=== PATIENT | male | born 2000 | race Caucasian/White ===

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

== ENCOUNTER 2018-03-09 17:16 | Inpatient (IN) ==
[2018-03-09] MEDS ORDERED: Sod Chloride 0.9% Inj 1,000 ML IV.SIG ONE (17:47)
--- NOTE | 2018-03-09 17:55 | ED ---
HPI General Chief complaint: Nausea/Vomiting/Diarrhea Stated complaint: N/V [id number] Time Seen by Provider: 03/09/18 17:43 Source: patient Mode of arrival: ambulatory Limitations: no limitations History of Present Illness HPI narrative: 17-year-old male here for evaluation of nausea, vomiting, generalized malaise. Patient reports several episodes of vomiting over the last week. Reports that he is unable to tolerate liquids or solids orally. Emesis consists of whenever he attempts to eat or drink and is sometimes bilious , nonbloody. He denies diarrhea. Last bowel movement was 2 days ago and was a very small BM. He has had subjective fevers and chills. No abdominal pain. No history of abdominal surgeries. He admits to smoking marijuana, last use was about a week ago. No other illicit drugs. States that he has been to [facility] in the last week, and they treat him in the emergency department and discharge him home. Related Data Home Medications Medication Instructions Recorded Confirmed No Known Home Medications 03/09/18 03/09/18 Allergies Allergy/AdvReac Type Severity Reaction Status Date / Time No Known Allergies Allergy Verified 03/09/18 17:22 Review of Systems ROS: all other systems reviewed are negative PMFSH Medical History Medical History Patient denies medical problems (Acute) Surgical History Surgical History No history of previous surgery (Acute) Social History Social History Substance History: Active Abuse Smoking Status: Former smoker How Often Do You Have a Drink Containing Alcohol: 2 to 4 times a month [facility] within the Last 8 Weeks: No Recent Out of Country Travel within the Last 8 Weeks: No Exam Narrative Exam Narrative: GENERAL: Well-developed, well-nourished, no apparent distress. SKIN: Focused skin assessment warm/dry. No rash. HEAD: Atraumatic. Normocephalic. EYES: Pupils equal and round. No scleral icterus. No injection or drainage. ENT: Mucous membranes pink and dry. NECK: Trachea midline. No JVD. CARDIOVASCULAR: Regular rate and rhythm. No murmur appreciated. RESPIRATORY: No accessory muscle use. Clear to auscultation. Breath sounds equal bilaterally. GASTROINTESTINAL: Abdomen soft, non-tender, nondistended. Normal bowel sounds. No hernias. MUSCULOSKELETAL: No obvious deformities. No clubbing. No cyanosis. No edema. NEUROLOGICAL: Awake and alert. No obvious cranial nerve deficits. Motor grossly within normal limits. Normal speech. PSYCHIATRIC: Appropriate mood and affect; insight and judgment normal. Course Initial Documented Vital Signs Temperature 98.9 F 03/09/18 17:22 Pulse Rate 84 03/09/18 17:22 Respiratory Rate 16 03/09/18 17:22 Blood Pressure 159/89 H 03/09/18 17:22 Pulse Oximetry 94 L 03/09/18 17:22 Last Documented Vital Signs Temperature 98.9 F 03/09/18 17:22 Pulse Rate 84 03/09/18 17:22 Respiratory Rate 16 03/09/18 17:22 Blood Pressure 159/89 H 03/09/18 17:22 Pulse Oximetry 94 L 03/09/18 17:22 Medical Decision Making MDM Narrative Medical decision making narrative: Vital signs reviewed. CBC is remarkable for WBC 17 which is likely from stress demargination from vomiting. Chemistry is remarkable for sodium 129, potassium 2.0, creatinine 1.4, bicarb 40. Abdominal x-ray flat and upright shows no acute process. No signs of obstruction. Patient was provided 2 L of normal saline IV in the emergency department and will be given parenteral and oral potassium replacement. He will be admitted for further treatment and evaluation of intractable nausea and vomiting, metabolic alkalosis, hypokalemia, hyponatremia. Case discussed with hospitalist Dr. Seo who will admit the patient to the hospitalist service. The patient was made aware of all findings and agrees to with admission. Medical Screen Exam Complete: Yes Emergency Medical Condition: Yes Differential Diagnosis Differential Diagnosis: Nausea and vomiting, dehydration, metabolic abnormality , bowel obstruction less likely Lab Data Result diagrams: 03/09/18 18:00 03/09/18 18:00 Lab Results 03/09/18 03/09/18 Range/Units 18:00 18:00 CBC w Diff Auto diff final WBC 17.8 H (4.0-11.0) th/mm3 RBC 5.63 (4.50-5.90) mil/mm3 Hgb 16.5 (13.0-17.0) gm/dL Hct 50.1 (39.0-51.0) % MCV 88.9 (80.0-100.0) fL MCH 29.2 (27.0-34.0) pg MCHC 32.9 (32.0-36.0) % RDW 12.4 (11.6-17.2) % Plt Count 376 (150-450) th/mm3 MPV 8.9 (7.0-11.0) fL Neut % (Auto) 75.6 H (16.0-70.0) % Lymph % (Auto) 13.8 (9.0-44.0) % [place] % (Auto) 9.7 H (0.0-8.0) % Eos % (Auto) 0.2 (0.0-4.0) % Baso % (Auto) 0.7 (0.0-2.0) % Neut # (Auto) 13.5 H (1.8-7.7) th/mm3 Lymph # (Auto) 2.5 (1.0-4.8) th/mm3 [place] # (Auto) 1.7 H (0.0-0.9) th/mm3 Eos # (Auto) 0.0 (0.0-0.4) th/mm3 Baso # (Auto) 0.1 (0.0-0.2) th/mm3 WBC Differential . Differential Comment . Sodium 129 L (136-145) meq/L Potassium 2.0 L* (3.5-5.1) meq/L Chloride 77 L (98-107) meq/L Carbon Dioxide 40.8 H (21.0-32.0) meq/L Anion Gap 11 (5-15) meq/L BUN 23 H (7-18) mg/dL Creatinine 1.40 H (0.60-1.30) mg/dL Estimated GFR 65 L (>89) mL/min Random Glucose 102 (74-106) mg/dL Calcium 9.7 (8.5-10.1) mg/dL Total Bilirubin 2.1 H (0.2-1.0) mg/dL AST 21 (15-39) U/L ALT 27 (9-52) U/L Alkaline Phosphatase 62 (45-117) U/L Total Protein 8.5 H (6.4-8.2) g/dL Albumin 4.8 (3.4-5.0) g/dL Lipase 101 (73-393) U/L Imaging Data Radiologist's impression: Abdomen X-Ray 03/09/18 17:47 CONCLUSION: No acute abnormality is seen. Discharge Plan Discharge Disposition Patient Disposition: 30 Still Patient Discharge Condition Condition: Stable Discharge Details Diagnosis: Persistent vomiting, Dehydration, Hypokalemia Physicians Team ED Provider: Orlando Kirkland Primary Care Provider: Primary Care Day Pruett Rxs /Orders / Referrals /Forms Prescriptions: No Action No Known Home Medications RF: 0 Status ED Status: With Doctor
[2018-03-09 18:12] LABS: Baso # (Auto) 0.1 th/mm3 (0.0-0.2); Baso % (Auto) 0.7 % (0.0-2.0); Eos % (Auto) 0.2 % (0.0-4.0); Hematocrit 50.1 % (39.0-51.0); Hemoglobin 16.5 gm/dL (13.0-17.0); Lymph # (Auto) 2.5 th/mm3 (1.0-4.8); Lymph % (Auto) 13.8 % (9.0-44.0); Mean Corpuscular HGB Conc 32.9 % (32.0-36.0); Mean Corpuscular Hemoglobin 29.2 pg (27.0-34.0); Mean Corpuscular Volume 88.9 fL (80.0-100.0); Mean Platelet Volume 8.9 fL (7.0-11.0); Mono # (Auto) 1.7 th/mm3 (0.0-0.9); Mono % (Auto) 9.7 % (0.0-8.0); Neut # (Auto) 13.5 th/mm3 (1.8-7.7); Neut % (Auto) 75.6 % (16.0-70.0); Platelet Count 376 th/mm3 (150-450); Red Blood Count 5.63 mil/mm3 (4.50-5.90); Red Cell Distribution Width 12.4 % (11.6-17.2); White Blood Count 17.8 th/mm3 (4.0-11.0)
--- NOTE | 2018-03-09 18:31 | XR ---
EXAM DATE: 03/09/2018 5:47 PM EDT AGE/SEX: 17 years / Male INDICATIONS: Nausea, vomiting, constipation for 1 week CLINICAL DATA: This is the patient's initial encounter. Patient reports that signs and symptoms have been present for 1 week and indicates a pain score of 8/10. MEDICAL/SURGICAL HISTORY: None. None. COMPARISON: No prior exams available for comparison. FINDINGS: Supine and upright views of the abdomen were performed. The abdominal bowel gas pattern is normal. No air-fluid levels are seen. No abnormal masses, calcifications, or organomegaly is seen. The visualiz ed lower lungs are clear. No evidence of free intraperitoneal gas. The osseous structures are unremar kable. CONCLUSION: No acute abnormality is seen. Electronically signed by: Brennan Rolle MD 03/09/2018 6:30 PM EDT
[2018-03-09 18:36] LABS: Alanine Aminotransferase 27 U/L (9-52); Albumin 4.8 g/dL (3.4-5.0); Alkaline Phosphatase 62 U/L (45-117); Anion Gap 11 meq/L (5-15); Aspartate Aminotransferase 21 U/L (15-39); Blood Urea Nitrogen 23 mg/dL (7-18); Calcium 9.7 mg/dL (8.5-10.1); Carbon Dioxide 40.8 meq/L (21.0-32.0); Chloride 77 meq/L (98-107); Glomerular Filtration Rate 65 mL/min (>89); Glucose,Random 102 mg/dL (74-106); Lipase 101 U/L (73-393); Sodium 129 meq/L (136-145); Total Protein 8.5 g/dL (6.4-8.2)
[2018-03-09] MEDS ORDERED: Sod Chloride 0.9% Inj 1,000 ML IV.SIG SCH (19:00)
[2018-03-09] MEDS ORDERED: Potassium Chloride Inj 40 MEQ in Sodium Chloride 0.45 % Inj 1,000 ML IV.CONT SCH (19:00)
[2018-03-09] MEDS ORDERED: Acetaminophen 325 MG Tablet PO PRN (19:20)
[2018-03-09] MEDS ORDERED: Bisacodyl 10 MG Supp RECTAL PRN (19:20)
[2018-03-09] MEDS ORDERED: Morphine Sulfate Inj 2 MG/ML Vial IV.PUSH PRN ×2 (19:21→19:49)
[2018-03-09] MEDS: Sod Chloride 0.9% Inj 1,000 ML IV.CONT SCH (19:49)
[2018-03-09] MEDS: Pantoprazole Inj 40 MG Vial IV.PUSH SCH (19:50)
[2018-03-09 20:10] LABS: Bilirubin,Urine Negative (Negative); Clarity,Urine Clear (Clear); Color,Urine Yellow (Yellw/Straw); Glucose,Urine (UA) Negative (Negative); Leukocyte Esterase,Urine Negative (Negative); Nitrite,Urine Negative (Negative); Specific Gravity,Urine 1.015 (1.002-1.035)
[2018-03-09 20:16] LABS: RBC,Urine 0-3 /hpf (0-3); Squamous Epithelial Cell,Urine 0-5 /hpf (0-5)
[2018-03-09] MEDS: Senna/Docusate Sodium 8.6/50 MG Tablet PO SCH (23:12)
[2018-03-10] MEDS: Potassium Chlor 20 mEq Premix 20 MEQ/100 ML PIGGYBACK IV.SIG SCH ×5 (01:58→23:50)
[2018-03-10] MEDS: Sod Chloride 0.9% Inj 1,000 ML IV.CONT SCH ×2 (05:52→17:21)
[2018-03-10 07:07] LABS: Baso # (Auto) 0.1 th/mm3 (0.0-0.2); Baso % (Auto) 0.8 % (0.0-2.0); Eos # (Auto) 0.1 th/mm3 (0.0-0.4); Eos % (Auto) 0.6 % (0.0-4.0); Hematocrit 45.7 % (39.0-51.0); Hemoglobin 15.5 gm/dL (13.0-17.0); Lymph # (Auto) 2.7 th/mm3 (1.0-4.8); Lymph % (Auto) 18.3 % (9.0-44.0); Mean Corpuscular HGB Conc 33.8 % (32.0-36.0); Mean Corpuscular Hemoglobin 30.1 pg (27.0-34.0); Mean Corpuscular Volume 88.8 fL (80.0-100.0); Mean Platelet Volume 9.3 fL (7.0-11.0); Mono # (Auto) 1.6 th/mm3 (0.0-0.9); Mono % (Auto) 11.1 % (0.0-8.0); Neut # (Auto) 10.3 th/mm3 (1.8-7.7); Neut % (Auto) 69.2 % (16.0-70.0); Platelet Count 338 th/mm3 (150-450); Red Blood Count 5.14 mil/mm3 (4.50-5.90); Red Cell Distribution Width 12.4 % (11.6-17.2); White Blood Count 14.8 th/mm3 (4.0-11.0)
[2018-03-10 07:36] LABS: Alanine Aminotransferase 26 U/L (9-52); Albumin 4.2 g/dL (3.4-5.0); Alkaline Phosphatase 53 U/L (45-117); Anion Gap 9 meq/L (5-15); Aspartate Aminotransferase 20 U/L (15-39); Blood Urea Nitrogen 19 mg/dL (7-18); Calcium 8.8 mg/dL (8.5-10.1); Carbon Dioxide 39.4 meq/L (21.0-32.0); Chloride 83 meq/L (98-107); Glomerular Filtration Rate 71 mL/min (>89); Glucose,Random 87 mg/dL (74-106); Sodium 131 meq/L (136-145); Total Protein 7.4 g/dL (6.4-8.2)
--- NOTE | 2018-03-10 07:45 | P.HP ---
History of Present Illness Primary Care Physician: No Primary Care Physician Chief Complaint: vomiting History of Present Illness: 17-year-old male with no chronic medical illnesses who presented the hospital for intractable nausea and vomiting. Patient states that for the last 2 weeks he has had difficulty with eating and drinking. States that he keep liquid down temporarily and then he will have emesis. Unable to really eat anything for the last 2 weeks. Patient did go to [facility] and was evaluated emergency department and discharged home. Patient persistently had nausea and vomiting so he came to [place] for evaluation. Upon evaluation patient was found to have significant electrolyte abnormalities with hyponatremia and hypokalemia. Signs of significant dehydration. Because of those reasons it was recommended by the ER physician the patient be admitted for further evaluation and management. Patient denies any significant foods that could cause any type of food poisoning. Patient denies any previous history of the nausea vomiting. Patient denies any hematemesis, abdominal pain. Patient states that he has not had a bowel movement in 4 days. Denies any melena or hematochezia. Patient states he does smoke marijuana on a daily basis. - Diagnosis (1) Intractable nausea and vomiting (2) Dehydration (3) Hypokalemia (4) Prerenal azotemia (5) Hyponatremia (6) Leukocytosis Inpatient Certification: I certify that the inpatient services were ordered in accordance with Medicare regulations governing the order. This includes certification that hospital inpatient services are reasonable and necessary and in the case of services not specified as inpatient-only under 42 CFR 419.22(n), that they are appropriately provided as inpatient services in accordance to with the 2-midnight benchmark under 43 CFR 412.3(e) Estimated Total Length of Stay (Days): 2 Plans for Post Hospital Care: Not yet determined Review of Systems All other systems reviewed negative except as stated in HPI Gastrointestinal: Reports nausea, Reports vomiting PMFSH - History History Provided By: Patient - Medical History Medical History: Medical History (Last Reviewed 03/10/18 @ 07:48 by ALTAGRACIA Mckenzie) Patient denies medical problems - Surgical History Surgical History: Surgical History (Last Reviewed 03/10/18 @ 07:48 by ALTAGRACIA Mckenzie) No history of previous surgery - Family History Family History: Family History (Last Updated 03/10/18 @ 07:52 by ALTAGRACIA Mckenzie) Mother History of lupus - Tobacco History Second Hand Smoke Exposure: Yes Smoking Status: Former smoker Tobacco Type: E-Cigarettes - Alcohol History How Often Do You Have a Drink Containing Alcohol: 2 to 4 times a month - Substance Use History Substance History: No History of Abuse - Substance Use Type Marijuana Status: Active Route Used: Inhalation Last Used: one week ago. Reason for Use: Calm Down, Increase Energy Level, Peer Pressure - Travel History Recent Travel in the [place] Within the Last 8 Weeks: No Recent Travel Out of the Country Within the Last 8 Weeks: No - Immunization History Tetanus Immunization: <5 Years Hx Influenza Vaccine This Season: No Medications and Allergies Active Medications: Active Medications Acetaminophen (Tylenol) 650 mg PO Q4H PRN PRN Reason: Temp > 100.4 Al Hydroxide/Mg Hydroxide (Milk Of Magnesia Liq) 30 ml PO Q12H PRN PRN Reason: Mild Constipation Bisacodyl (Dulcolax Supp) 10 mg RECTAL DAILY PRN PRN Reason: SEVERE CONSITIPATION Sodium Chloride (Ns Inj) 1,000 mls @ 0 mls/hr IV.SIG BOLUS ELIE Sodium Chloride (Ns Inj) 1,000 mls @ 100 mls/hr IV.CONT .Q10H [facility] Last Admin: 03/10/18 05:52 Dose: 100 mls/hr Lactulose (Lactulose Liq) 30 ml PO DAILY PRN PRN Reason: SEVERE CONSITIPATION Morphine Sulfate (Morphine Inj) 2 mg IV.PUSH Q4H PRN PRN Reason: PAIN 6-10 Ondansetron HCl (Zofran Inj) 4 mg IV.PUSH Q6H PRN PRN Reason: NAUSEA OR VOMITING Last Admin: 03/10/18 01:41 Dose: 4 mg Pantoprazole Sodium (Protonix Inj) 40 mg IV.PUSH Q12H [facility] Last Admin: 03/09/18 19:50 Dose: 40 mg Prochlorperazine Edisylate (Compazine Inj) 10 mg IV.PUSH Q6H PRN PRN Reason: NAUSEA/VOMITING Senna/Docusate Sodium (Dena-Colace) 1 tab PO BID [facility] Last Admin: 03/09/18 23:12 Dose: Not Given Sennosides (Senokot) 17.2 mg PO Q12H PRN PRN Reason: Moderate Constipation Sodium Chloride (Ns Flush) 2 ml IV.FLUSH PRN PRN PRN Reason: FLUSH AFTER USING IV ACCESS Allergies Allergy/AdvReac Type Severity Reaction Status Date / Time No Known Allergies Allergy Verified 03/09/18 17:22 Home Medications Medication Instructions Recorded Confirmed Type No Known Home Medications 03/09/18 03/09/18 History Exam Vital signs: Vital Signs 03/09/18 17:22 03/09/18 20:12 03/09/18 21:49 Temperature 98.9 F Pulse Rate 84 80 82 Respiratory Rate 16 18 18 Blood Pressure 159/89 H 144/73 H 142/70 H Pulse Oximetry 94 L 98 98 03/09/18 22:00 03/10/18 00:00 Temperature 98.8 F 99.2 F Pulse Rate 72 65 Respiratory Rate 20 20 Blood Pressure 138/79 152/67 H Pulse Oximetry 97 97 Intake & Output 03/09/18 03/10/18 03/10/18 18:59 06:59 18:59 Intake Total 2200 / 2200 Balance 2200 / 2200 Weight 111.1 kg 115.4 kg Intake: IV 2200 / 2200 NS Inj 1,000 ML @ 100 mls/hr IV 1000 / 1000 .CONT .Q10H ELIE Rx#:[id number] KCl 20 mEq Premix Inj 20 meq In 200 / 200 100 ml @ 50 mls/hr IV.SIG Q2H ELIE Rx#:[id number] NS Inj 1,000 ML @ Wide Open IV. 1000 / 1000 SIG BOLUS ONE Rx#:[id number] Oral 0 / 0 Other: # Voids 3 Weight On Admission 115.6 kg Narrative: GENERAL: Well-developed, well-nourished, in no acute distress. alert and orientated HEENT: Head is normocephalic without any lesions or masses noted. Facial features are symmetric. Eyes: Pupils equal round reactive to light. Extraocular muscles are intact. Conjunctivae were clear. Oropharyngeal: Pharynx without any erythema edema. Tongue is midline without deviation. Buccal mucosa is moist without any masses or lesions NECK: Supple without any masses. Trachea midline no deviation. No JVD, no bruits are appreciated CARDIAC: Regular rhythm, regular rate. S1/S2 are heard. No murmurs gallops or rubs. LUNGS: Clear to auscultation bilaterally. No wheeze, rhonchi or rales. No use of accessory muscles on inspiration or expiration. ABDOMEN: Soft, nontender. Nondistended. Bowel sounds heard in all 4 quadrants. No organomegaly or masses. Negative rebound, negative guarding EXTREMITIES: No edema, pulses are equal bilaterally. No cyanosis or clubbing NEUROLOGY: Mood and affect appear appropriate. Cranial nerves II through XII grossly intact. Muscle strength 5/5 in upper and lower extremities bilaterally. Deep tendon reflexes are 2+ in upper and lower extremities bilaterally. Results - Labs CBC & Chem 7: 03/10/18 06:10 03/09/18 18:00 Labs: Laboratory Results - last 24 hr 03/09/18 03/09/18 03/09/18 18:00 18:00 20:00 CBC w Diff Auto diff final WBC 17.8 H RBC 5.63 Hgb 16.5 Hct 50.1 MCV 88.9 MCH 29.2 MCHC 32.9 RDW 12.4 Plt Count 376 MPV 8.9 Neut % (Auto) 75.6 H Lymph % (Auto) 13.8 Wilcox % (Auto) 9.7 H Eos % (Auto) 0.2 Baso % (Auto) 0.7 Neut # (Auto) 13.5 H Lymph # (Auto) 2.5 Wilcox # (Auto) 1.7 H Eos # (Auto) 0.0 Baso # (Auto) 0.1 WBC Differential . Differential Comment . Sodium 129 L Potassium 2.0 L* Chloride 77 L Carbon Dioxide 40.8 H Anion Gap 11 BUN 23 H Creatinine 1.40 H Estimated GFR 65 L Random Glucose 102 Calcium 9.7 Magnesium Total Bilirubin 2.1 H AST 21 ALT 27 Alkaline Phosphatase 62 Total Protein 8.5 H Albumin 4.8 Lipase 101 Urine Color Yellow Urine Clarity Clear Urine pH 8.0 Ur Specific [place] 1.015 Urine Protein 30 H Urine Glucose (UA) Negative Urine Ketones Trace H Urine Occult Blood Trace Urine Nitrate Negative Urine Bilirubin Negative Urine Urobilinogen 2.0 H Ur Leukocyte Esterase Negative Urine RBC 0-3 Ur Squamous Epith Cells 0-5 Micro UA Comment Culture not ind Ur Microscopic Review Microscopic reviewed Urine Culture Comments Culture not ind 03/09/18 03/10/18 22:50 06:10 CBC w Diff Auto diff final WBC 14.8 H RBC 5.14 Hgb 15.5 Hct 45.7 MCV 88.8 MCH 30.1 MCHC 33.8 RDW 12.4 Plt Count 338 MPV 9.3 Neut % (Auto) 69.2 Lymph % (Auto) 18.3 Wilcox % (Auto) 11.1 H Eos % (Auto) 0.6 Baso % (Auto) 0.8 Neut # (Auto) 10.3 H Lymph # (Auto) 2.7 Wilcox # (Auto) 1.6 H Eos # (Auto) 0.1 Baso # (Auto) 0.1 WBC Differential . Differential Comment . Sodium Potassium Chloride Carbon Dioxide Anion Gap BUN Creatinine Estimated GFR Random Glucose Calcium Magnesium 2.2 Total Bilirubin AST ALT Alkaline Phosphatase Total Protein Albumin Lipase Urine Color Urine Clarity Urine pH Ur Specific [place] Urine Protein Urine Glucose (UA) Urine Ketones Urine Occult Blood Urine Nitrate Urine Bilirubin Urine Urobilinogen Ur Leukocyte Esterase Urine RBC Ur Squamous Epith Cells Micro UA Comment Ur Microscopic Review Urine Culture Comments - Imaging Impressions Abdomen X-Ray 03/09/18 17:47 CONCLUSION: No acute abnormality is seen. Caprini VTE Risk Assessment Caprini VTE Risk Assessment: No/Low Risk (score <= 1) Caprini Risk Assessment Model: Point Value = 1 Point Value = 2 Point Value = 3 Point Value = 5 Age 41-60 Minor surgery BMI > 25 kg/m2 Swollen legs Varicose veins or History of unexplained or recurrent spontaneous Oral contraceptives or hormone replacement Sepsis (< 1 month) Serious lung disease, including pneumonia (< 1 month) Abnormal pulmonary function Acute myocardial infarction Congestive heart failure (< 1 month) History of inflammatory bowel disease Medical patient at bed rest Age 61-74 Arthroscopic surgery Major open surgery (> 45 min) Laparoscopic surgery (> 45 min) Malignancy Confined to bed (> 72 hours) Immobilizing plaster cast Central venous access Age >= 75 History of VTE Family history of VTE Factor V Leiden Prothrombin [id number] Lupus anticoagulant Anticardiolipin antibodies Elevated serum homocysteine Heparin-induced thrombocytopenia Other congenital or acquired thrombophilia Stroke (< 1 month) Elective arthroplasty Hip, pelvis, or leg fracture Acute spinal cord injury (< 1 month) Prophylaxis Regimen: Total Risk Factor Score Risk Level Prophylaxis Regimen 0-1 Low Early ambulation 2 Moderate Order ONE of the following: *Sequential Compression Device (SCD) *Heparin 5000 units SQ BID 3-4 Higher Order ONE of the following medications: *Heparin 5000 units SQ TID *Enoxaparin/Lovenox 40 mg SQ daily (WT < 150 kg, CrCl > 30 mL/min) *Enoxaparin/Lovenox 30 mg SQ daily (WT < 150 kg, CrCl > 10-29 mL/min) *Enoxaparin/Lovenox 30 mg SQ BID (WT < 150 kg, CrCl > 30 mL/min) AND/OR *Sequential Compression Device (SCD) 5 or more Highest Order ONE of the following medications: *Heparin 5000 units SQ TID (Preferred with Epidurals) *Enoxaparin/Lovenox 40 mg SQ daily (WT < 150 kg, CrCl > 30 mL/min) *Enoxaparin/Lovenox 30 mg SQ daily (WT < 150 kg, CrCl > 10-29 mL/min) *Enoxaparin/Lovenox 30 mg SQ BID (WT < 150 kg, CrCl > 30 mL/min) AND *Sequential Compression Device (SCD) Assessment and Plan - Assessment (1) Intractable nausea and vomiting Code(s): R11.2 - Nausea with vomiting, unspecified Status: Acute (2) Dehydration Code(s): E86.0 - Dehydration Status: Acute (3) Hypokalemia Code(s): E87.6 - Hypokalemia Status: Acute (4) Prerenal azotemia Code(s): R79.89 - Other specified abnormal findings of blood chemistry Status : Acute (5) Hyponatremia Code(s): E87.1 - Hypo-osmolality and hyponatremia Status: Acute (6) Leukocytosis Code(s): D72.829 - Elevated white blood cell count, unspecified Status: Acute - Plan Intractable nausea vomiting -Unknown etiology at this time, possible cyclic vomiting from marijuana use -Abdominal x-ray did not indicate any acute abnormality -We will need to obtain CT of the abdomen pelvis to rule out any etiology -Continue IV fluids -Continue antiemetic, proton pump inhibitor -Advance diet as tolerated Electrolyte abnormalities with hyponatremia, hypokalemia -Continue to monitor and replete as needed Prerenal azotemia -Secondary to nausea, vomiting, dehydration -Continue IV fluids -Continue monitor renal function Leukocytosis -Likely secondary to concentration -Continue monitor CBC DVT prevention -Sequential compression devices
[2018-03-10] MEDS ORDERED: Diatrizoate Meglum/Diatrizoate Sod Liq 9 ML UDC PO SCH (08:00)
[2018-03-10 08:05] LABS: Potassium 2.6 meq/L (3.5-5.1)
[2018-03-10] MEDS: Senna/Docusate Sodium 8.6/50 MG Tablet PO SCH ×2 (08:59→20:01)
[2018-03-10] MEDS: Pantoprazole Inj 40 MG Vial IV.PUSH SCH ×2 (08:59→19:50)
--- NOTE | 2018-03-10 13:28 | CT ---
EXAM DATE: 03/10/2018 7:47 AM EDT AGE/SEX: 17 years / Male INDICATIONS: Nausea and vomiting CLINICAL DATA: This is the patient's initial encounter. Patient reports that signs and symptoms have been present for 1 week and indicates a pain score of 0/10. MEDICAL/SURGICAL HISTORY: None. None. RADIATION DOSE: 19.43 CTDI (mGy) COMPARISON: [facility], ABDOMEN 2V FLAT & UPRIGHT, 03/09/2018. . TECHNIQUE: Multiple contiguous axial images were obtained through the abdomen. Images were obtained using multiple row detector helical technique. Using automated exposure control and adjustment of the mA and/or kV according to patient size, radiation dose was kept as low as reasonably achievable to o btain optimal diagnostic quality images. DICOM format image data is available electronically for rev iew and comparison. FINDINGS: Lower Lungs: The visualized lower lungs are clear. Liver: The liver has a homogeneous density without space-occupying lesion. There is no dilation of th e biliary tree. Spleen: Homogeneous density without enlargement. Pancreas: Unremarkable without mass or calcification. Kidneys: Normal in size and shape. No evidence of mass or hydronephrosis. Adrenal Glands: Unremarkable. Aorta: The aorta and proximal iliac vessels are grossly unremarkable without aneurysmal dilation. Bowel/Mesentery: There is abnormal bowel wall thickening identified throughout the cecum and proxima l portion of the transverse colon. There is also incomplete distention of the terminal ileum with sug gested circumferential wall thickening. The remainder of the small bowel is unremarkable. Abdominal Wall: Intact. Retroperitoneum: No evidence of adenopathy in the retrocrural, para-aortic, or deep pelvic regions. Bladder: Contours are smooth. Reproductive Organs: No abnormal masses or calcifications seen. Inguinal: The inguinal region is unremarkable without evidence of adenopathy. Bony Structures: Unremarkable. CONCLUSION: 1. Colitis involving the cecum, ascending colon and proximal transverse colon. The wall thickening i dentified within the terminal ileum may be artifactual secondary to incomplete distention, however, f indings can also represent inflammation secondary to Crohn's disease. Electronically signed by: Lucinda Maurer MD 03/10/2018 1:26 PM EDT
[2018-03-11] MEDS: Potassium Chlor 20 mEq Premix 20 MEQ/100 ML PIGGYBACK IV.SIG SCH ×3 (02:23→07:10)
[2018-03-11 06:20] LABS: Baso # (Auto) 0.1 th/mm3 (0.0-0.2); Baso % (Auto) 0.4 % (0.0-2.0); Eos # (Auto) 0.2 th/mm3 (0.0-0.4); Eos % (Auto) 1.5 % (0.0-4.0); Hematocrit 42.5 % (39.0-51.0); Hemoglobin 14.4 gm/dL (13.0-17.0); Lymph % (Auto) 19.8 % (9.0-44.0); Mean Corpuscular HGB Conc 33.9 % (32.0-36.0); Mean Corpuscular Hemoglobin 30.1 pg (27.0-34.0); Mean Platelet Volume 9.1 fL (7.0-11.0); Mono # (Auto) 1.3 th/mm3 (0.0-0.9); Mono % (Auto) 8.7 % (0.0-8.0); Neut # (Auto) 10.4 th/mm3 (1.8-7.7); Neut % (Auto) 69.6 % (16.0-70.0); Platelet Count 300 th/mm3 (150-450); Red Blood Count 4.77 mil/mm3 (4.50-5.90); Red Cell Distribution Width 12.1 % (11.6-17.2)
[2018-03-11 06:29] LABS: Alanine Aminotransferase 28 U/L (9-52); Albumin 3.9 g/dL (3.4-5.0); Alkaline Phosphatase 49 U/L (45-117); Anion Gap 8 meq/L (5-15); Aspartate Aminotransferase 19 U/L (15-39); Blood Urea Nitrogen 17 mg/dL (7-18); Calcium 8.5 mg/dL (8.5-10.1); Carbon Dioxide 31.9 meq/L (21.0-32.0); Chloride 92 meq/L (98-107); Glomerular Filtration Rate 86 mL/min (>89); Glucose,Random 88 mg/dL (74-106); Sodium 132 meq/L (136-145); Total Protein 6.8 g/dL (6.4-8.2)
[2018-03-11 06:35] LABS: Potassium 2.9 meq/L (3.5-5.1)
--- NOTE | 2018-03-11 07:24 | P.PN ---
Subjective Interval history: 17-year-old male who is seen and examined today for follow-up on intractable nausea and vomiting, hypokalemia. Patient states that he still is vomiting a little. Nursing staff indicates patient was vomiting all night. Patient still with significant hypokalemia. Patient denies any abdominal pain, diarrhea. Vital signs show mildly elevated blood pressure which could be reactive. Patient remains afebrile. Physical Exam Vital signs: Vital Signs 03/10/18 08:00 03/10/18 12:00 03/10/18 16:00 Temperature 98.0 F 98.2 F 98.0 F Pulse Rate 64 63 57 L Respiratory Rate 18 15 14 Blood Pressure 144/92 H 143/83 H 150/86 H Pulse Oximetry 100 100 97 03/10/18 20:00 03/11/18 00:00 Temperature 98.6 F 99.1 F Pulse Rate 62 55 L Respiratory Rate 20 20 Blood Pressure 152/80 H 140/72 Pulse Oximetry 97 95 Intake & Output 03/10/18 03/11/18 03/11/18 18:59 06:59 18:59 Intake Total 1100 / 1100 1560 / 1560 100 / 100 Balance 1100 / 1100 1560 / 1560 100 / 100 Weight 115.2 kg Intake: IV 1100 / 1100 1320 / 1320 100 / 100 NS Inj 1,000 ML @ 100 mls/hr IV 1000 / 1000 .CONT .Q10H ELIE Rx#:[id number] KCl 20 mEq Premix Inj 20 meq In 100 / 100 300 / 300 100 / 100 100 ml @ 50 mls/hr IV.SIG Q2H ELIE Rx#:[id number] Oral 240 / 240 Other: # Voids 2 # Emeses 2 Narrative: GENERAL: Well-developed, well-nourished, in no acute distress. alert and orientated HEENT: Head is normocephalic without any lesions or masses noted. Facial features are symmetric. Eyes: Extraocular muscles are intact. Conjunctivae were clear. NECK: Supple without any masses. Trachea midline no deviation. No JVD, CARDIAC: Regular rhythm, regular rate. S1/S2 are heard. No murmurs gallops or rubs. LUNGS: Clear to auscultation bilaterally. No wheeze, rhonchi or rales. No use of accessory muscles on inspiration or expiration. ABDOMEN: Soft, nontender. Nondistended. Bowel sounds heard in all 4 quadrants. No organomegaly or masses. Negative rebound, negative guarding EXTREMITIES: No edema, pulses are equal bilaterally. No cyanosis or clubbing NEUROLOGY: Mood and affect appear appropriate. Cranial nerves II through XII grossly intact. Moving all extremities, speech is clear Results - Labs CBC & Chem 7: 03/11/18 05:53 03/11/18 05:53 Laboratory Results - last 24 hr 03/10/18 03/10/18 03/11/18 06:10 20:25 05:53 CBC w Diff Auto diff final WBC 15.0 H RBC 4.77 Hgb 14.4 Hct 42.5 MCV 89.0 MCH 30.1 MCHC 33.9 RDW 12.1 Plt Count 300 MPV 9.1 Neut % (Auto) 69.6 Lymph % (Auto) 19.8 Riley % (Auto) 8.7 H Eos % (Auto) 1.5 Baso % (Auto) 0.4 Neut # (Auto) 10.4 H Lymph # (Auto) 3.0 Riley # (Auto) 1.3 H Eos # (Auto) 0.2 Baso # (Auto) 0.1 WBC Differential . Differential Comment . Sodium 131 L Potassium 2.6 L* 2.7 L* Chloride 83 L Carbon Dioxide 39.4 H Anion Gap 9 BUN 19 H Creatinine 1.30 Estimated GFR 71 L Random Glucose 87 Calcium 8.8 D Total Bilirubin 2.2 H AST 20 ALT 26 Alkaline Phosphatase 53 Total Protein 7.4 D Albumin 4.2 D 03/11/18 05:53 CBC w Diff WBC RBC Hgb Hct MCV MCH MCHC RDW Plt Count MPV Neut % (Auto) Lymph % (Auto) Riley % (Auto) Eos % (Auto) Baso % (Auto) Neut # (Auto) Lymph # (Auto) Riley # (Auto) Eos # (Auto) Baso # (Auto) WBC Differential Differential Comment Sodium 132 L Potassium 2.9 L* Chloride 92 L D Carbon Dioxide 31.9 Anion Gap 8 BUN 17 Creatinine 1.10 Estimated GFR 86 L Random Glucose 88 Calcium 8.5 Total Bilirubin 2.3 H AST 19 ALT 28 Alkaline Phosphatase 49 Total Protein 6.8 D Albumin 3.9 - Imaging Impressions Abdomen/Pelvis CT 03/10/18 07:41 CONCLUSION: 1. Colitis involving the cecum, ascending colon and proximal transverse colon. The wall thickening identified within the terminal ileum may be artifactual secondary to incomplete distention, however, findings can also represent inflammation secondary to Crohn's disease. Assessment and Plan - Assessment (1) Intractable nausea and vomiting Code(s): R11.2 - Nausea with vomiting, unspecified Status: Acute (2) Dehydration Code(s): E86.0 - Dehydration Status: Acute (3) Hypokalemia Code(s): E87.6 - Hypokalemia Status: Acute (4) Prerenal azotemia Code(s): R79.89 - Other specified abnormal findings of blood chemistry Status : Acute (5) Hyponatremia Code(s): E87.1 - Hypo-osmolality and hyponatremia Status: Acute (6) Leukocytosis Code(s): D72.829 - Elevated white blood cell count, unspecified Status: Acute - Plan Intractable nausea vomiting -Unknown etiology at this time, possible cyclic vomiting from marijuana use -Abdominal x-ray did not indicate any acute abnormality -CT scan indicated:. Colitis involving the cecum, ascending colon and proximal transverse colon. The wall thickening identified within the terminal ileum may be artifactual secondary to incomplete distention, however, findings can also represent inflammation secondary to Crohn's disease. -Continue IV fluids -Continue antiemetic, proton pump inhibitor, consider starting Reglan -Advance diet as tolerated -Consulted gastroenterology for further recommendations -Consider gastric emptying study Electrolyte abnormalities with hyponatremia, hypokalemia -Continue to monitor and replete as needed Prerenal azotemia, resolved -Secondary to nausea, vomiting, dehydration -Continue IV fluids -Continue monitor renal function Leukocytosis, persistent -Likely secondary to concentration, colitis -Continue monitor CBC DVT prevention -Sequential compression devices
[2018-03-11] MEDS: Pantoprazole Inj 40 MG Vial IV.PUSH SCH ×2 (10:05→20:39)
[2018-03-11] MEDS: Senna/Docusate Sodium 8.6/50 MG Tablet PO SCH ×2 (10:05→20:39)
[2018-03-11 10:54] LABS: Amphetamine Screen,Urine Neg (Neg); Barbiturate Screen,Urine Neg (Neg); Cannabinoid Screen,Urine Pos (Neg); Cocaine Screen,Urine Neg (Neg)
[2018-03-11 10:57] LABS: Opiate Screen,Urine Neg (Neg)
[2018-03-11] MEDS ORDERED: Magnesium Citrate Liq 300 ML Bottle PO ONE (11:00)
[2018-03-11] MEDS: Ciprofloxacin 200 MG/100 ML 200 MG/100 ML PIGGYBACK IV.SIG SCH (13:07)
--- NOTE | 2018-03-11 13:44 | MB ---
cc: Rayna Muoñz MD DATE: 03/11/2018 REFERRING PHYSICIAN: Ismael Blandon MD REASON FOR CONSULTATION: Nausea, vomiting, abnormal CT. HISTORY OF PRESENT ILLNESS: Mr. Carpenter is a 17-year-old gentleman with no major medical problems, came to the emergency room with complaints of intractable nausea and vomiting for the last 2 weeks. In the emergency room, he was found to have hypokalemia and hyponatremia. He is on IV supplementation, and in spite of that, his potassium continued to be on the lower side. He denies any diarrhea. His last bowel movement was 4 days ago which according to him was solid. He passes flatus and also he is burping. There is weight loss since August. He stated back in August he was diagnosed with Salmonella and was treated for that. He was admitted to [facility]. The patient does smoke marijuana on a daily basis, so this could be a cannabinoid syndrome also. PAST MEDICAL HISTORY: He has history of salmonella, cannabis use. SURGICAL HISTORY: None. FAMILY HISTORY: No family history of colon cancer or any GI pathology. He has history of lupus in mother. SOCIAL HISTORY: He denies any drug use. He smokes e-cigarettes, and he is using marijuana on a daily basis. ALLERGIES: NO KNOWN ALLERGIES. MEDICATIONS: In the hospital, he is takin. Zofran. 2. Lactulose p.r.n. 3. Morphine. 4. Protonix. 5. Potassium chloride. 6. Compazine p.r.n. 7. IV fluids. REVIEW OF SYSTEMS: He denies any fever, chills. He does have weight loss. ENT: No alteration in his baseline hearing or visual activity. PULMONARY: He denies any chest pain, shortness of breath. GASTROINTESTINAL: As above. GENITOURINARY: He denies dysuria or hematuria. HEMATOLOGICAL: No history of anemia or bleeding disorder. SKIN: No alteration of baseline skin lesion. NEUROLOGIC: No history of TIA or CVA kind of symptoms. PHYSICAL EXAMINATION: GENERAL: He is sitting comfortable in bed, no acute distress. Multiple tattoos on his skin. He also has some stria on his abdominal wall on back. VITAL SIGNS: Temperature is 98.2, heart rate is 64, blood pressure 138/91. HEENT: PERRLA. NECK: No JVD. No lymphadenopathy. CHEST: Clear to auscultation and palpation. CARDIOVASCULAR: S1, S2. No murmur. ABDOMEN: Soft, obese. Bowel sounds are present. CENTRAL NERVOUS SYSTEM: Awake, alert, oriented x3. No focal signs identified. LABORATORY DATA: White count on admission 17.8, currently 15. Platelets normal. Hemoglobin 16.5 on admission, currently 14.4. Chemistry: Potassium 2, currently 2.9. BUN 23, now is 17. Creatinine 1.4, now . Total bilirubin was 2.1, currently 2.3. No indirect bilirubin done so far. Liver enzymes normal, otherwise. CT abdomen and pelvis done this admission showed some inflammatory changes involving the cecum, ascending colon, proximal transverse that could be artifactual versus incomplete distention. However, findings could be consistent with inflammation secondary to Crohn disease. IMPRESSION: Mr. Carpenter 17-year-old gentleman with intractable nausea and vomiting. Etiology of this is unclear, could be cannabinoid syndrome also, but other etiologies including gastroparesis, gastritis, esophagitis need to be ruled out. History of Salmonella in August. Abnormal colon as described on CT. Concern for infectious colitis versus inflammatory bowel disease versus nondistention of the colon. The patient denies diarrhea at this point. Weight loss reportedly since August. Unclear etiology. Hypokalemia, possible secondary to nausea and vomiting. Mild elevated bilirubin -possible Gilbert's we will send direct and indirect bilirubin RECOMMENDATION: EGD and colonoscopy in the morning if he agrees. Unable to tolerate bowel prep. At this time, the patient would like to go home and have workup as an outpatient. Advised that would be not recommended in view of his hypokalemia and recurrent nausea and vomiting. Stool studies. Continue PPI. Start Flagyl, Cipro. Avoid cannabis if possible. Cortisol level sent also. C-reactive protein and sedimentation rate. If discharged, follow up in the office. Magnesium level. Replace potassium. direct and indirect bilirubin I would like to thank for referring him to our office for consultation. Further recommendation will depend on the patient's clinical status and the above results. MD SONAL Vidal/rosy/jeniffer , 10:01 AM , 10:14 AM DARRION
[2018-03-11 15:58] LABS: Potassium 3.1 meq/L (3.5-5.1)
[2018-03-11 16:00] LABS: Calcium 8.6 mg/dL (8.5-10.1)
[2018-03-11 16:01] LABS: Carbon Dioxide 29.6 meq/L (21.0-32.0)
[2018-03-12] MEDS: Ciprofloxacin 200 MG/100 ML 200 MG/100 ML PIGGYBACK IV.SIG SCH ×2 (02:07→17:40)
[2018-03-12 05:28] LABS: Baso # (Auto) 0.1 th/mm3 (0.0-0.2); Baso % (Auto) 0.6 % (0.0-2.0); Eos # (Auto) 0.3 th/mm3 (0.0-0.4); Eos % (Auto) 3.4 % (0.0-4.0); Hematocrit 41.1 % (39.0-51.0); Lymph # (Auto) 2.7 th/mm3 (1.0-4.8); Mean Corpuscular HGB Conc 34.1 % (32.0-36.0); Mean Corpuscular Volume 88.1 fL (80.0-100.0); Mean Platelet Volume 9.2 fL (7.0-11.0); Mono # (Auto) 0.8 th/mm3 (0.0-0.9); Mono % (Auto) 7.7 % (0.0-8.0); Neut # (Auto) 6.3 th/mm3 (1.8-7.7); Neut % (Auto) 62.3 % (16.0-70.0); Platelet Count 293 th/mm3 (150-450); Red Blood Count 4.66 mil/mm3 (4.50-5.90); Red Cell Distribution Width 11.9 % (11.6-17.2); White Blood Count 10.2 th/mm3 (4.0-11.0)
[2018-03-12 05:41] LABS: Chloride 98 meq/L (98-107); Potassium 3.2 meq/L (3.5-5.1); Sodium 136 meq/L (136-145)
[2018-03-12 05:44] LABS: Calcium 8.5 mg/dL (8.5-10.1)
[2018-03-12 05:45] LABS: Anion Gap 8 meq/L (5-15); Blood Urea Nitrogen 14 mg/dL (7-18); Carbon Dioxide 30.1 meq/L (21.0-32.0); Glucose,Random 80 mg/dL (74-106)
[2018-03-12 05:48] LABS: Glomerular Filtration Rate Greater Than 89 mL/min (>89)
--- NOTE | 2018-03-12 07:28 | P.PNGI ---
Subjective Interval history: Patient laying in bed, comfortable, tolerated prep, stated that he was not able to eat or drink properly for the last 1-2 weeks, CT scan showed possible Crohn disease or colitis, patient does not have lower GI symptom Physical Exam Vital signs: Vital Signs 03/11/18 08:00 03/11/18 12:00 03/11/18 16:00 Temperature 98.2 F 97.8 F 99.0 F Pulse Rate 64 57 L 69 Respiratory Rate 20 20 20 Blood Pressure 138/91 H 138/92 H 152/78 H Pulse Oximetry 100 97 99 03/11/18 20:00 03/12/18 00:00 03/12/18 06:52 Temperature 98.6 F 97.8 F 98.4 F Pulse Rate 67 55 L 55 L Respiratory Rate 18 18 16 Blood Pressure 151/89 H 157/87 H 162/81 H Pulse Oximetry 100 100 99 Intake & Output 03/11/18 03/12/18 03/12/18 18:59 06:59 18:59 Intake Total 1144 / 1144 2540 / 2540 Output Total 1901 / 1901 Balance -757 / -757 2539 / 2539 Weight 115.2 kg Intake: IV 300 / 300 1300 / 1300 NS + KCl 20 mEq Inj 1,000 ML @ 1000 / 1000 125 mls/hr IV.CONT .Q8H ELIE Rx# :[id number] Cipro 200 MG/100 ML Inj 200 mg 100 / 100 In 100 ml @ 100 mls/hr IV.SIG Q12H ELIE Rx#:[id number] KCl 20 mEq Premix Inj 20 meq In 100 / 100 100 ml @ 50 mls/hr IV.SIG Q2H ELIE Rx#:[id number] Flagyl 500 MG Inj 100 ML @ 100 100 / 100 200 / 200 mls/hr IV.SIG Q8H ELIE Rx#: [id number] Oral 844 / 844 1240 / 1240 Output: Urine 1900 / 1900 Stool Other: # Voids 3 Date of Last Bowel Movement 03/11/18 03/11/18 - Constitutional no acute distress - Routine HEENT Exam Head: Present: normocephalic, atraumatic Eye: Present: EOMI, PERRL ENT: Present: mucous membranes moist - Routine Neck Exam Present: supple, full ROM - Routine Respiratory Exam Present: CTA bilaterally - Routine Cardiovascular Exam Present: RRR, S1, S2 - Routine Abdominal Exam Present: soft, normoactive bowel sounds - Routine Skin Exam Present: intact, warm - Routine Neurological Exam Present: alert, oriented X3 Results - Labs CBC & Chem 7: 03/12/18 04:45 03/12/18 04:45 Laboratory Results - last 24 hr 03/11/18 03/11/18 03/11/18 05:53 05:53 05:53 CBC w Diff WBC RBC Hgb Hct MCV MCH MCHC RDW Plt Count MPV Neut % (Auto) Lymph % (Auto) [place] % (Auto) Eos % (Auto) Baso % (Auto) Neut # (Auto) Lymph # (Auto) [place] # (Auto) Eos # (Auto) Baso # (Auto) WBC Differential Differential Comment ESR 1 Sodium 132 L Potassium 2.9 L* Chloride 92 L D Carbon Dioxide 31.9 Anion Gap 8 BUN 17 Creatinine 1.10 Estimated GFR 86 L Random Glucose 88 Calcium 8.5 Magnesium 2.2 Total Bilirubin 2.3 H Direct Bilirubin 0.6 H AST 19 ALT 28 Alkaline Phosphatase 49 Total Protein 6.8 D Albumin 3.9 TSH Cortisol Urine Opiates Screen Ur Barbiturates Screen Ur Amphetamines Screen U Benzodiazepines Scrn Urine Cocaine Screen U Cannabinoids Screen 03/11/18 03/11/18 03/11/18 05:53 10:30 15:10 CBC w Diff WBC RBC Hgb Hct MCV MCH MCHC RDW Plt Count MPV Neut % (Auto) Lymph % (Auto) [place] % (Auto) Eos % (Auto) Baso % (Auto) Neut # (Auto) Lymph # (Auto) [place] # (Auto) Eos # (Auto) Baso # (Auto) WBC Differential Differential Comment ESR Sodium 132 L Potassium 3.1 L Chloride 93 L Carbon Dioxide 29.6 Anion Gap 9 BUN 16 Creatinine 1.20 Estimated GFR 78 L Random Glucose 90 Calcium 8.6 Magnesium Total Bilirubin Direct Bilirubin AST ALT Alkaline Phosphatase Total Protein Albumin TSH 1.650 Cortisol Urine Opiates Screen Neg Ur Barbiturates Screen Neg Ur Amphetamines Screen Neg U Benzodiazepines Scrn Neg Urine Cocaine Screen Neg U Cannabinoids Screen Pos H 03/11/18 03/12/18 03/12/18 15:10 04:45 04:45 CBC w Diff Auto diff final WBC 10.2 RBC 4.66 Hgb 14.0 Hct 41.1 MCV 88.1 MCH 30.0 MCHC 34.1 RDW 11.9 Plt Count 293 MPV 9.2 Neut % (Auto) 62.3 Lymph % (Auto) 26.0 [place] % (Auto) 7.7 Eos % (Auto) 3.4 Baso % (Auto) 0.6 Neut # (Auto) 6.3 Lymph # (Auto) 2.7 [place] # (Auto) 0.8 Eos # (Auto) 0.3 Baso # (Auto) 0.1 WBC Differential . Differential Comment . ESR Sodium 136 Potassium 3.2 L Chloride 98 Carbon Dioxide 30.1 Anion Gap 8 BUN 14 Creatinine 1.00 Estimated GFR Greater than 89 Random Glucose 80 Calcium 8.5 Magnesium Total Bilirubin Direct Bilirubin AST ALT Alkaline Phosphatase Total Protein Albumin TSH Cortisol 14.6 Urine Opiates Screen Ur Barbiturates Screen Ur Amphetamines Screen U Benzodiazepines Scrn Urine Cocaine Screen U Cannabinoids Screen Assessment and Plan - Plan 17-year-old gentleman who has dysphagia, patient also has abnormal CT scan showing possible colitis and terminal ileum abnormality, patient had upper endoscopy and colonoscopy done today Findings; colonoscopy, prep fair Terminal ileum : Normal Colon: Normal Rectum: Normal No colitis or ileitis was seen Esophagus: Grade D esophagitis Stomach: Multiple ulcers in the antrum biopsy was done Duodenum: Normal Recommendations; 1- Supportive care 2- ok to transfer to recovery area then discharge per protocol 3-soft diet 4-Hemoccult on a yearly basis by primary care physician 5-colonoscopy as needed 6- EGD in 2-month 7-Protonix 40 mg daily 8-no alcohol 9-okay to discharge from GI perspective
--- NOTE | 2018-03-12 07:46 | P.PCN ---
Date of procedure: 03/12/18 Procedure: THANK YOU FOR THE REFERRAL Indication; dysphagia, abnormal CT scan showing possible colitis or Crohn disease in the right colon and terminal ileum Procedure Performed; upper endoscopy: With biopsy Colonoscopy: Diagnostic After informing the patient about procedure and possible complications consent was signed. history and physical were updated. Patient was taken to the procedure room and placed in position. Time out was completed. Adequate sedation was performed by anesthesia provider. Upper Endoscopy, the scope was placed in the mouth advanced under video guide to the second portion of the duodenum, then the scope was withdrawal to the stomach and retro-flexion was performed, the scope was withdrawal to the esophagus then out of the mouth without any immediate complication Colonoscopy, rectal exam was performed the scope was placed in the rectum advanced under video guide to the cecum which was identified by ileo-cecal valve and appendiceal orifice, then the scope withdrawal slowly with examination of the mucosa to the rectum and retro-flexion was performed, the scope was withdrawal without any immediate complication Findings; colonoscopy, prep fair Terminal ileum : Normal Colon: Normal Rectum: Normal No colitis or ileitis was seen Esophagus: Grade D esophagitis Stomach: Multiple ulcers in the antrum biopsy was done Duodenum: Normal Recommendations; 1- Supportive care 2- ok to transfer to recovery area then discharge per protocol 3-soft diet 4-Hemoccult on a yearly basis by primary care physician 5-colonoscopy as needed 6- EGD in 2-month 7-Protonix 40 mg daily 8-no alcohol 9-okay to discharge from GI perspective
[2018-03-12] MEDS ORDERED: Morphine Inj 4 MG/ML Vial ONE (08:40)
[2018-03-12] MEDS ORDERED: Labetalol HCl Inj 100 MG/20 ML Vial ONE (09:06)
[2018-03-12] MEDS: Pantoprazole Inj 40 MG Vial IV.PUSH SCH (09:39)
[2018-03-12] MEDS: Senna/Docusate Sodium 8.6/50 MG Tablet PO SCH (09:39)
[2018-03-12 11:59] VITALS: BP 127/84; RESP 18
[2018-03-12 16:12] VITALS: PULSE 52; TEMP 97.8; O2SAT 98
--- NOTE | 2018-03-12 17:57 | P.DS ---
Date of admission: 03/09/18 19:22 Primary care physician: No Primary Care Physician Attending physician on discharge: Ismael Blandon Anticipated date of discharge: 03/12/18 Brief History from admission: 17-year-old male with no chronic medical illnesses who presented the hospital for intractable nausea and vomiting. Patient states that for the last 2 weeks he has had difficulty with eating and drinking. States that he keep liquid down temporarily and then he will have emesis. Unable to really eat anything for the last 2 weeks. Patient did go to [facility] and was evaluated emergency department and discharged home. Patient persistently had nausea and vomiting so he came to [place] for evaluation. Upon evaluation patient was found to have significant electrolyte abnormalities with hyponatremia and hypokalemia. Signs of significant dehydration. Because of those reasons it was recommended by the ER physician the patient be admitted for further evaluation and management. Patient denies any significant foods that could cause any type of food poisoning. Patient denies any previous history of the nausea vomiting. Patient denies any hematemesis, abdominal pain. Patient states that he has not had a bowel movement in 4 days. Denies any melena or hematochezia. Patient states he does smoke marijuana on a daily basis. DS: Diagnosis - Discharge Diagnosis (1) Intractable nausea and vomiting Status: Acute (2) Dehydration Status: Acute (3) Hypokalemia Status: Acute (4) Prerenal azotemia Status: Acute (5) Hyponatremia Status: Acute (6) Leukocytosis Status: Acute DS: Medications - Discharge Medications Prescriptions: ciprofloxacin HCl [Cipro] 500 mg PO BID #10 tab metronidazole [Flagyl] 500 mg PO TID #15 tab pantoprazole [Protonix] 40 mg PO DAILY #30 tab DS: Summary Hospital Course: Intractable nausea vomiting, resolved -Unknown etiology at this time, possible cyclic vomiting from marijuana use -Abdominal x-ray did not indicate any acute abnormality -CT scan indicated:. Colitis involving the cecum, ascending colon and proximal transverse colon. The wall thickening identified within the terminal ileum may be artifactual secondary to incomplete distention, however, findings can also represent inflammation secondary to Crohn's disease. -Continue IV fluids -Continue antiemetic, proton pump inhibitor, consider starting Reglan -Advance diet as tolerated -Consulted gastroenterology for further recommendations -Patient did undergo upper endoscopy today which did indicate grade D esophagitis, multiple ulcers in the antrum -GI indicated patient can be discharged home with outpatient follow-up on Protonix Electrolyte abnormalities with hyponatremia, hypokalemia -Continue to monitor and replete as needed Prerenal azotemia, resolved -Secondary to nausea, vomiting, dehydration -Continue IV fluids -Continue monitor renal function Leukocytosis, persistent -Likely secondary to concentration, colitis -Continue monitor CBC - Time Spent with Patient Total time spent providing and/or coordinating discharge services: Greater than 30 minutes - Quality: VTE Deep Vein Thrombosis/Pulmonary Embolism Present on Admission: No Exam Vital signs: Vital Signs 03/11/18 20:00 03/12/18 00:00 03/12/18 06:52 Temperature 98.6 F 97.8 F 98.4 F Pulse Rate 67 55 L 55 L Respiratory Rate 18 18 16 Blood Pressure 151/89 H 157/87 H 162/81 H Pulse Oximetry 100 100 99 03/12/18 07:55 03/12/18 08:10 03/12/18 08:25 Temperature 98.1 F Pulse Rate 58 L 56 L 56 L Respiratory Rate 18 18 18 Blood Pressure 195/80 H 145/100 H 175/100 H Pulse Oximetry 99 03/12/18 08:40 03/12/18 09:10 03/12/18 11:58 Temperature 98.3 F 97.9 F Pulse Rate 56 L 56 L 71 Respiratory Rate 18 16 18 Blood Pressure 197/106 H 190/100 H 127/84 Pulse Oximetry 99 03/12/18 16:00 Temperature 97.8 F Pulse Rate 52 L Respiratory Rate 18 Blood Pressure Pulse Oximetry 98 Intake & Output 03/11/18 03/12/18 03/12/18 18:59 06:59 18:59 Intake Total 1144 / 1144 2540 / 2540 1000 / 1000 Output Total 1901 / 1901 Balance -757 / -757 2539 / 2539 1000 / 1000 Weight 115.2 kg Intake: IV 300 / 300 1300 / 1300 1000 / 1000 NS + KCl 20 mEq Inj 1,000 ML @ 1000 / 1000 1000 / 1000 125 mls/hr IV.CONT .Q8H ELIE Rx# :[id number] Cipro 200 MG/100 ML Inj 200 mg 100 / 100 In 100 ml @ 100 mls/hr IV.SIG Q12H ELIE Rx#:[id number] KCl 20 mEq Premix Inj 20 meq In 100 / 100 100 ml @ 50 mls/hr IV.SIG Q2H ELIE Rx#:[id number] Flagyl 500 MG Inj 100 ML @ 100 100 / 100 200 / 200 mls/hr IV.SIG Q8H ELIE Rx#: [id number] Oral 844 / 844 1240 / 1240 Output: Urine 1900 / 1900 Stool Other: # Voids 3 Date of Last Bowel Movement 03/11/18 03/11/18 Narrative: GENERAL: Well-developed, well-nourished, in no acute distress. alert and orientated HEENT: Head is normocephalic without any lesions or masses noted. Facial features are symmetric. Eyes: Extraocular muscles are intact. Conjunctivae were clear. NECK: Supple without any masses. Trachea midline no deviation. No JVD, CARDIAC: Regular rhythm, regular rate. S1/S2 are heard. No murmurs gallops or rubs. LUNGS: Clear to auscultation bilaterally. No wheeze, rhonchi or rales. No use of accessory muscles on inspiration or expiration. ABDOMEN: Soft, nontender. Nondistended. Bowel sounds heard in all 4 quadrants. No organomegaly or masses. Negative rebound, negative guarding EXTREMITIES: No edema, pulses are equal bilaterally. No cyanosis or clubbing NEUROLOGY: Mood and affect appear appropriate. Cranial nerves II through XII grossly intact. Moving all extremities, speech is clear Results Procedures completed during hospitalization: colonoscopy, prep fair Terminal ileum : Normal Colon: Normal Rectum: Normal No colitis or ileitis was seen Esophagus: Grade D esophagitis Stomach: Multiple ulcers in the antrum biopsy was done Duodenum: Normal Labs on day of discharge: Labs from last 24 hours 03/12/18 03/12/18 03/12/18 17:35 04:45 04:45 CBC w Diff Auto diff final WBC 10.2 RBC 4.66 Hgb 14.0 Hct 41.1 MCV 88.1 MCH 30.0 MCHC 34.1 RDW 11.9 Plt Count 293 MPV 9.2 Neut % (Auto) 62.3 Lymph % (Auto) 26.0 [place] % (Auto) 7.7 Eos % (Auto) 3.4 Baso % (Auto) 0.6 Neut # (Auto) 6.3 Lymph # (Auto) 2.7 [place] # (Auto) 0.8 Eos # (Auto) 0.3 Baso # (Auto) 0.1 WBC Differential . Differential Comment . Sodium Pending 136 Potassium Pending 3.2 L Chloride Pending 98 Carbon Dioxide Pending 30.1 Anion Gap Pending 8 BUN Pending 14 Creatinine Pending 1.00 Estimated GFR Greater than 89 Random Glucose Pending 80 Calcium Pending 8.5 Cortisol 03/11/18 15:10 CBC w Diff WBC RBC Hgb Hct MCV MCH MCHC RDW Plt Count MPV Neut % (Auto) Lymph % (Auto) [place] % (Auto) Eos % (Auto) Baso % (Auto) Neut # (Auto) Lymph # (Auto) [place] # (Auto) Eos # (Auto) Baso # (Auto) WBC Differential Differential Comment Sodium Potassium Chloride Carbon Dioxide Anion Gap BUN Creatinine Estimated GFR Random Glucose Calcium Cortisol 14.6 - Impressions ITS Impressions Abdomen X-Ray 03/09/18 17:47 CONCLUSION: No acute abnormality is seen. Abdomen/Pelvis CT 03/10/18 07:41 CONCLUSION: 1. Colitis involving the cecum, ascending colon and proximal transverse colon. The wall thickening identified within the terminal ileum may be artifactual secondary to incomplete distention, however, findings can also represent inflammation secondary to Crohn's disease. Discharge Plan - Discharge Disposition Patient Disposition: 01 Discharge Home - Discharge Condition Condition: Stable - Discharge Order Discharge Orders: Discharge Order (Routine); Ordered 03/12/18 Ordered By: Reji Hassan - Discharge Details Anticipated Discharge Date: 03/12/18 - Physicians Team Primary Care Provider: Primary Care Flynn,Day Attending Provider: Ismael Blandon Other Providers: Rayna Muñoz MD
[2018-03-12 17:58] LABS: Chloride 100 meq/L (98-107); Potassium 3.5 meq/L (3.5-5.1); Sodium 136 meq/L (136-145)
[2018-03-12 18:00] LABS: Calcium 8.6 mg/dL (8.5-10.1)
[2018-03-12 18:01] LABS: Anion Gap 9 meq/L (5-15); Blood Urea Nitrogen 12 mg/dL (7-18); Carbon Dioxide 26.6 meq/L (21.0-32.0); Glucose,Random 79 mg/dL (74-106)
[2018-03-12 18:04] LABS: Glomerular Filtration Rate Greater Than 89 mL/min (>89)
== END 2018-03-12 19:00 | disposition home or self-care (01) ==
LOC: PHED 17:16 → PHEDA 19:22 → PH3 21:59
PROVIDERS: ADMIT Hospitalist; ATTEND Hospitalist
PROC: PANENDO (2018-03-12 07:25)
PROC: COLONOS (2018-03-12 07:25)